=== PATIENT | male | born 1980 | race American Indian/Alaskan Native ===

== ENCOUNTER 2022-01-17 17:26 | Outpatient (REF) | payer MEDICAID, SELFPAY | END 2022-01-17 17:27 | disposition home or self-care (01) | LOC: LAB 17:26 | PROVIDERS: PCP Family Medicine; Visit Provider Orthopaedic Surgery | DX: Z01.818 Encounter for other preprocedural examination (principal) | CPT/HCPCS: 36415; 86850; 86900; 86901 ==

== ENCOUNTER 2022-01-18 09:00 | Outpatient (CLI) | payer MEDICAID, SELFPAY ==
[2022-01-18 15:04] LABS: SARS PCR* Negative SARS-CoV-2 (Negative)
== END 2022-01-18 09:01 | disposition home or self-care (01) ==
LOC: FBOREF 09:00
PROVIDERS: PCP Family Medicine; Visit Provider Orthopaedic Surgery
DX: Z20.822 Contact with and (suspected) exposure to COVID-19 (principal); Z01.818 Encounter for other preprocedural examination
CPT/HCPCS: 87635

== ENCOUNTER 2022-01-19 07:19 | Day surgery (SDC) | payer MEDICAID, SELFPAY ==
[2022-01-19] VITALS (31 sets, daily range): BP systolic 87–148; BP diastolic 36–108; PULSE 69–134; RESP 13–20; TEMP 35.6–37.2; O2SAT 93–100; BMI 25.4
[2022-01-19] MEDS: OXYCODONE (CR) 10 MG TAB.ER.12H PO (07:54)
[2022-01-19] MEDS: ACETAMINOPHEN 500 MG TABLET 1000 MG PO ×3 (07:54→18:27)
[2022-01-19] MEDS: SODIUM CHLORIDE 0.9 % (FLUSH) 10 ML SYRINGE IVF (08:05)
[2022-01-19] MEDS: LACTATED RINGERS 1000 ML 1,000 ML 100 ML IV ×2 (08:05→09:32)
--- NOTE | 2022-01-19 08:16 | SUR.PREOP ---
TIME?OUT:?0818 PT/RN/MDA?VERIFICATION?OF?SURGICAL?SITE,?PROCEDURE,?AND?CONSENT OBTAINED?PRIOR?TO?INVASIVE?PROCEDURE.
[2022-01-19] MEDS: MIDAZOLAM HCL 1 MG/ML inj IVP ×2 (08:19→08:22)
[2022-01-19] MEDS: fentaNYL 100 MCG/2 ML inj IVP ×2 (08:19→08:22)
--- NOTE | 2022-01-19 08:27 | CRLHL7_ITS ---
For Patients: As a result of the Cures Act, medical imaging exams and procedure reports are released immediately into your electronic medical record. You may view this report before your referring provider. If you have questions, please contact your health care provider. Indication: Hip replacement surgery Technique: AP hip fluoroscopic image. Fluoroscopy time 74.2 seconds. Findings/Impression: Hardware from a right total hip arthroplasty is in satisfactory position. Dictated by Renny Mari MD @ 01/19/2022 11:00:09 AM (Electronically Signed)
--- NOTE | 2022-01-19 08:27 | W.PM.NB ---
Nerve Block Nerve Block Time Seen by Provider: 08:28 Date Seen: 01/19/22 Type of block requested by surgeon for post-operative analgesia: DALJIT/LFCN Side: right Time out performed: Yes Verification of patient name: Yes Verification of date of : Yes Site marking: site marked Name of person performing procedure: Rios Continuous monitoring Was continuous monitoring of O2 sat, B/P, monitoring and evaluation advisor, recorded every 15 minutes?: Yes Procedure Checklist: sterile prep, needles and gloves Ultrasound guided. Images saved: Yes Medications given in 5ml increments after negative aspiration: Ropivicaine %: 0.5 mL: 30 Needle gauge: 20 Decadron (mg): 10 Precedex (mcg): 25 Patient tolerated procedure well: Yes Additional comments: Needle noted below psoas tendon needle noted adjacent to LFCN Block Charges Block Charge (with Pro Fee): Other Periph Nerve Block Use of Ultrasound Machine for Block: Yes- US Guidance/pain block
[2022-01-19] MEDS: CEFAZOLIN 2 GM INJ IVP (09:10)
[2022-01-19] MEDS: TRANEXAMIC ACID 100 MG/ML INJ 1000 MG IV (09:12)
--- NOTE | 2022-01-19 10:43 | CRLHL7_ITS ---
For Patients: As a result of the Cures Act, medical imaging exams and procedure reports are released immediately into your electronic medical record. You may view this report before your referring provider. If you have questions, please contact your health care provider. Indication: post op HORTENCIA Technique: AP hip centered pelvis and lateral view right hip. Findings/Impression: Hardware from a right total hip arthroplasty is in satisfactory position. Bone alignment is normal. No sign of acute fracture. Postop changes are within normal limits. Dictated by Renny Mari MD @ 01/19/2022 12:02:22 PM (Electronically Signed)
--- NOTE | 2022-01-19 10:46 | PM.ORPRC ---
Procedure Note Date of procedure: 01/19/22 Procedure: SURGEON: Mynor Zabala MD STRAIGHTEDGE WORKER: Kathleen Oconnor PA-C, Xenia Medrano PA-C PREOPERATIVE DIAGNOSIS: Right hip osteoarthritis POSTOPERATIVE DIAGNOSIS: Right hip osteoarthritis NAME OF OPERATION: Right total hip arthroplasty IMPLANTS: 1. [employer]andall # 54 sector ingrowth cup 2. 36 x 54 +4 neutral polyethylene 3. Actis # 6 standard collared ingrowth stem 4. 36 + 5 ceramic femoral head ANESTHESIA: General ESTIMATED BLOOD LOSS: 200 cc COMPLICATIONS: None SPECIMENS: None DRAINS: None PREOPERATIVE ANTIBIOTICS: Ancef 1 g INDICATIONS: The patient is a 41-year-old with a longstanding history of severe, unrelenting right hip pain secondary to end-stage right hip osteoarthritis. Despite appropriate nonoperative management, including activity modification, use of an assist device, anti-inflammatories, [id number] pain medication, physical therapy and injections, they continue to have pain and disability. Operative intervention was offered. The risks, benefits and expected outcomes were discussed in detail. These included but were not limited to: Infection, bleeding, injury to blood vessel or nerve, venous thromboembolism. All questions were answered to their satisfaction. Use of an specimen preparation assistant was necessary throughout the case for patient positioning and safety, soft tissue retraction and closure. PROCEDURE: The patient was placed supine on the [place] table. General anesthesia was administered. The specimen preparation assistant made sure the patient was properly positioned. The right hip was prepped and draped in the usual sterile fashion. The image intensifier was brought in for a perfect AP pelvis and a perfect double tear drop AP view of each hip which were used for intraoperative templating with our fluoroscopic guide. An oblique incision was made 3 cm distal and 3 cm lateral to the anterior superior iliac spine. The specimen preparation assistant retracted the soft tissues to protect them. Subcutaneous dissection was taken with electrocautery to the superficial fascia. The fascia was divided in line with the incision. Blunt dissection was carried medially to the tensor fascia sheree and sartorius interval. Deep dissection was carried with electrocautery. The circumflex vessels were cauterized and divided. The capsule was exposed and then divided in a T-fashion, tagged with #1 Ethibond sutures. Retractors were placed in the joint, held by the specimen preparation assistant. The corkscrew was placed in the femoral head. The neck cut was made in the subcapital region. We made a second neck cut more distal. The napkin ring of bone was removed. The femoral head was removed intact. Acetabular retractors were placed, held by the specimen preparation assistant. The labrum was sharply debrided. The capsule was released. The 43 mm reamer was used to the true medial wall. We then enlarged in 2 mm increments using the image intensifier for our reamer placement. We impacted the cup which had excellent purchase. We placed the hole eliminator and the polyethylene. Attention was then turned to the proximal femur. The limb was placed in 140 degrees of external rotation, maximum extension and adduction. A significant amount of time was spent releasing the capsule to allow us to deliver the femur into the wound and complete the femoral side safely. Retractors were held by the specimen preparation assistant throughout the femoral preparation. The preparing box tender and canal finder were used. Broaches were used to a stable size. The calcar reamer was used. Trial components were placed. The hip was reduced and was found to be stable with appropriate soft tissue tension. Length and offset had been nicely restored using the image intensifier and our fluoroscopic guide. Trial components were removed. The stem was impacted. We placed the femoral head. Again, the hip was reduced and was found to be stable with appropriate soft tissue tension. Length and offset had been nicely restored. The specimen preparation assistant did a three minute dilute Betadine solution soak. The specimen preparation assistant irrigated the wound with 3 liters of normal saline via pulse lavage. The specimen preparation assistant repaired the anterior capsule with a #1 Vicryl and our previously placed Ethibond sutures. The specimen preparation assistant closed the fascia over the tensor fascia sheree with a #1 PDO Stratafix, subcutaneous tissues with 2-0 Vicryl, skin with a running 3-0 Stratafix and glue. A dry dressing was applied by the specimen preparation assistant. Sponge and needle counts were correct x 2. The patient tolerated the procedure well; there were no apparent complications. They were awakened and extubated in the operating room, sent to the Post-Anesthesia Care Unit in satisfactory condition. PLAN: 1. The patient will be mobilized with physical therapy, weight-bearing as tolerates 2. Xarelto x 5 days then aspirin x 30 days will be used for DVT prophylaxis 3. The patient will be discharged once medically appropriate
--- NOTE | 2022-01-19 11:29 | W.ANESCHARGE ---
Anesthesia Charges Start Date/Time Anesthesia Start Date: 01/19/22 Anesthesia Start Time: 08:58 Stop Date/Time Anesthesia Stop Date: 01/19/22 Anesthesia Stop Time: 11:24 Summary Emergency: No
--- NOTE | 2022-01-19 11:57 | W.ANESCHARGE ---
Anesthesia Charges Start Date/Time Anesthesia Start Date: 01/19/22 Anesthesia Start Time: 08:58 Stop Date/Time Anesthesia Stop Date: 01/19/22 Anesthesia Stop Time: 11:24 Summary Emergency: No
--- NOTE | 2022-01-19 12:05 | SUR.PHASEI ---
patient met criteria for discharge per anesthesia
[2022-01-19] MEDS: ONDANSETRON 2 MG/ML inj 4 MG IVP (12:34)
[2022-01-19] MEDS: OXYCODONE 5 MG TABLET PO ×4 (12:35→22:05)
[2022-01-19] MEDS: LACTATED RINGERS 1000 ML 1,000 ML 75 ML IV (12:52)
[2022-01-19] MEDS: MORPHINE 2 MG/ML inj IVP (13:27)
--- NOTE | 2022-01-19 14:29 | P.IMCN_ITS ---
Date of Consult Patient: Karime Patient Consult date: 01/19/22 Requesting Physician: Orthopedics Primary Care Provider: Annika Pennington MD Consult Narrative Reason for consult: Medical management of comorbid conditions Narrative: Raffaele Harding is a 41 year old male who presented to the hospital today for an elective R HORTENCIA. There were no operative or anesthetic complications. Comorbidities include schizoaffective disorder, ADHD, antisocial personality disorder, moderate persistent asthma with allergic component, nicotine dependence (1/4-1/2ppd), and history of substance abuse (currently using MJ daily, history of methamphetamine abuse). He also notes that he gets bronchitis 4-6 times/year and wonders if he's able to start a Z-pack today. Patient's PCP is prescribing psych meds at this time; he is working on finding a psychiatrist who is a good fit for him. Patient's preoperative H&P reviewed (PCP is Dr. Annika Pennington at [facility] in [place]) and home medications reviewed. Patient lives independently, not working (SSDI 2/2 psych disease), mother lives locally as well. He plans on SNF placement upon discharge. Review of Systems Status of ROS: Reports: 10 or more systems reviewed and unremarkable except as noted in History and below Narrative: Mild chest congestion as noted above, no dyspnea or chest pain. [facility] Medical History (Updated 01/19/22 @ 15:08 by Laura Edwards MD) ADHD GERD (gastroesophageal reflux disease) History of heroin abuse Moderate persistent allergic asthma Renal vessel(s) injury, unspecified Schizo affective schizophrenia Seizure-like activity Tobacco dependence Surgical History (Updated 01/19/22 @ 13:35 by Kathleen Mitchell PA-C) H/O cervical spine surgery (~2016) History of hip surgery (~2005) S/P T&A (status post tonsillectomy and adenoidectomy) Family History (Updated 01/03/22 @ 14:33 by Libby Rojo RN) Mother Rheumatic fever Asthma Social History Smoking Status: Current every day smoker What tobacco products do you use: cigarettes Years smoked: 30 How often do you have a drink containing alcohol: monthly or less AUDIT-C Alcohol total score: 1 Non-prescribed substance use: marijuana (any form), crack/cocaine and amphetamines/methamphetamines Non-prescribed substance use details: medical marijuana Caffeine: Yes (occ pop; coffee, 1 lge cup/day) Meds Home Medications and Allergies Home Medications Medication Instructions Recorded Confirmed Type topiramate 100 mg capsule 100 mg PO HS 11/16/21 01/19/22 History sprinkle,extended release 24 hr trazodone 100 mg tablet 100 mg PO HS 11/16/21 01/19/22 History albuterol sulfate 90 mcg/actuation 2 puff inhalation QID PRN 01/03/22 01/19/22 History aerosol inhaler (ProAir HFA) quetiapine 100 mg tablet 200 mg PO HS 01/03/22 01/19/22 History Home Medication Comments: Also on daily Zyrtec, Claritin, and Vitamin D. Allergies Allergy/AdvReac Type Severity Reaction Status Date / Time tetracycline Allergy Severe Throat Verified 11/18/21 10:41 closes doxycycline Allergy Intermediate Hives Verified 11/18/21 10:41 hydromorphone Allergy Intermediate Hives Verified 11/18/21 10:41 Exam Narrative: Exam Narrative: GEN: Alert HEENT: Normal external ears, EOMIs bilaterally CV: RRR, No concerning murmurs, rubs, or gallops R: LCTA bilaterally without concerning wheezing, rales, or rhonchi, air movement adequate Ext: wwp, no concerning edema Skin: Scar noted on posterior neck, c/w previous neck surgery. Otherwise, no concerning skin lesions or rashes on exposed skin Neuro: No focal deficits Psych: Patient is alternates between having psychomotor slowing and becoming perseverative. He perseverates both on initiating a Z-Mauricio and going outside to vape marijuana. He is intermittently able to be redirected by mother, who was present throughout our interview Const: Vital Signs, click to edit/add: Vital Signs - 24 hr 01/19/22 08:10 01/19/22 08:18 01/19/22 08:20 Temperature 97.5 F L Pulse Rate 87 93 98 Respiratory Rate 18 16 16 Blood Pressure 111/83 97/73 119/36 L Pulse Oximetry 98 99 99 Oxygen Delivery Me thod Room Air Nasal Cannula Nasal Cannula Oxygen Flow Rate 3 3 01/19/22 08:25 01/19/22 08:30 01/19/22 08:35 Temperature Pulse Rate 98 89 86 Respiratory Rate 16 16 16 Blood Pressure 118/77 113/72 87/53 L Pulse Oximetry 99 93 98 Oxygen Delivery Me thod Nasal Cannula Nasal Cannula Nasal Cannula Oxygen Flow Rate 3 3 3 01/19/22 08:40 01/19/22 08:45 01/19/22 08:50 Temperature Pulse Rate 87 88 85 Respiratory Rate 16 16 16 Blood Pressure 104/70 104/69 104/75 Pulse Oximetry 99 99 99 Oxygen Delivery Me thod Nasal Cannula Nasal Cannula Nasal Cannula Oxygen Flow Rate 3 3 3 01/19/22 11:20 01/19/22 11:25 01/19/22 11:30 Temperature 96.6 F L 96.6 F L 96.6 F L Pulse Rate 70 71 70 Respiratory Rate 15 13 14 Blood Pressure 104/73 97/69 93/65 Pulse Oximetry 99 99 99 Oxygen Delivery Me thod Room Air Room Air Room Air Oxygen Flow Rate 01/19/22 11:35 01/19/22 11:40 01/19/22 11:45 Temperature 96.6 F L 96.6 F L 96.6 F L Pulse Rate 70 69 70 Respiratory Rate 14 14 13 Blood Pressure 93/70 95/68 93/69 Pulse Oximetry 99 99 99 Oxygen Delivery Me thod Room Air Room Air Room Air Oxygen Flow Rate 01/19/22 11:50 Temperature 96.8 F L Pulse Rate 70 Respiratory Rate 13 Blood Pressure 93/69 Pulse Oximetry 99 Oxygen Delivery Me thod Room Air Oxygen Flow Rate Assessment and Plan Assessment and plan (1) Status post right hip replacement: Status: Acute Assessment and Plan: - pain control and prophylaxis per Orthopedic Surgery team (2) Schizo affective schizophrenia: Status: Acute Assessment and Plan: - continue home medications with prn medications given perseveration and risk for escalating behaviors (3) Tobacco dependence: Status: Acute Assessment and Plan: - patient aware of campus's no smoking policy. He is amenable to a trial of nicotine patch. He does have concerns about not being able to go outside and vape marijuana, we discussed hospital policy surrounding this. (4) Moderate persistent allergic asthma: Status: Acute Assessment and Plan: - continue home Zyrtec and p.r.n. albuterol. Discussed rate reassuring vital signs and lung exam, discussed that we will not be initiating a Z-Mauricio today, will follow patient clinically. - Encourage IS thrice daily
--- NOTE | 2022-01-19 14:46 | PC.SOCIAL ---
Met with pt.'s mother. Pt. was sleeping after surgery. She is unable to stay with pt. and she checked pt.'s insurance and said he has a halfway benefit. Pt. and his mother live in [place] so they would like placement in [place], [place], and [place]. coordinator of health services will start to work on discharge planning needs. [place] does not have any openings.
[2022-01-19] MEDS: CEFAZOLIN 1 GM in 0.9 % SODIUM CHLORIDE Mini-bag 100 ML IVPB ×2 (15:37→22:56)
[2022-01-19] MEDS: NICOTINE 14 mg PATCH 1 PATCH TRANSDERMA (15:38)
--- NOTE | 2022-01-19 15:49 | PC.NURSE ---
End of shift report: Patient was a new right total hip arthroplasty from today. Arrived to the unit at 1215 today. Mother, Edith Tierney at bedside ([phone]). Patient thrashing and moving from side to side on arrival to unit. Unable to verbalize needs. Provided comfort measures and reassurement. Patient started to come out of anesthesia after about 1 hour on the floor. Had 10/10 pain. PO tylenol/oxy given to patient and prophylactically gave zofran as well. Patient very upset about where the IV was placed in SDS. 3 attempts for a new IV was completed with success. Patient was happy to have it in a place where he could bend his hand and arm. LR running at 75ml/hr. Patient also perseverating on discharge planning. I have to go to a penitentiary. I have no one to care for me and i can't be by myself. coordinator of health services was contacted and spoke with patients mother and patient about the process. coordinator of health services will continue to follow. MD was notified that patient is very anxious and agitated. MD saw patient and will restart home meds. Patient also stating that he smokes marijuana daily and will continue to do this while he is here. MD notified patient that this is against our policy and we cannot allow this but we would adjust his medications to help him get through this. Patient got up to the chair with PT but was very upset with the PT for getting him up and leaving him in the chair. Explained to the patient that being up in the chair after surgery is good for lungs and recovery. Patients mother concerned about his discharge needs. She is unable to provide 24 hour care for him and requests that patient go to a penitentiary for a week or so. Incision is clean, dry and intact. Lung sounds are clear. Vital signs within normal limits. Demanding food but recommended to take it slow. Patient ordered 2 meals as he was starving. Mother brought him a blizzard as well. CWMS is within normal limits and is able to ambulate with stand by assist. Patient does not have teeth or dentures. Takes pills whol with water.
[2022-01-19] MEDS: QUETIAPINE 100 MG TABLET 200 MG PO (20:01)
[2022-01-19] MEDS: TRAZODONE HCL 50 MG TABLET 100 MG PO (20:02)
[2022-01-19] MEDS: TOPIRAMATE 50 MG TABLET 100 MG PO (20:02)
[2022-01-19] MEDS: SENNOSIDES 1 TAB TABLET 2 TAB PO (20:59)
[2022-01-19] MEDS: LORazepam 0.5 MG TABLET PO (22:05)
--- NOTE | 2022-01-19 22:28 | PC.NURSE ---
End of Shift: Patient cooperative and gets agitated at times. Patient vitally stable, lungs clear, BS WNL, IV intact. Patient 1 assist, walker, gb. Patient at most has rated pain 7/10, oxy 10 mg given x3, 2 mg of ativan given HS. Patient HS meds given early upon patient requested and MD okayed giving 2100 meds early. Patient walked the daily once this shift as he expressed not being able to sit in bed anymore. Patient does not like bed alarm, patient was told he must use call light to get up from bed. Patient has been laying comfortably in bed on his phone. Right hip dressing C/D/I. Active Ice in use.
[2022-01-20] MEDS: OXYCODONE 5 MG TABLET PO ×2 (00:46→09:49)
[2022-01-20 03:00] VITALS: PULSE 112; RESP 16; O2SAT 95
--- NOTE | 2022-01-20 06:28 | PC.NURSE ---
Shift note: RN unable to assess the surgical wound, pt does not allow. He is afebrile, pain assessed and was treated per eMAR, and pt was able to rest for the night. supervisor metal placing visited with pt a couple times explaining hospital rules/policies for smoking.
--- NOTE | 2022-01-20 07:47 | P.ORPN_ITS ---
Subjective Subjective Time Seen by Provider: 09:30 Date Seen: 01/20/22 Principal diagnosis: Day 1 s/p right HORTENCIA Interval history: At the start of this visit, Leandro was sleeping in bed and I conversed with his mother. During our inital conversation Leandro began shaking, which his mother reports are his night terrors. Shortly following, Leandro awoke and conversed. Overnight, he has been non-compliant with nursing requests. He is upset that is not able to get up and walk around Med/Surg without nursing staff present. He also is requesting to be able to smoke marijuana. We had a discussion regarding hospital policies, but Leandro remains upset. From an Orthopedic standpoint, he is doing quite well. Pain is well managed with current scheduled and PRN oral pain medications and ice. Ranks his pain 6/10. Denies: fever, chills, body aches, chest pain, SOB. Patient has a strong desire to placed in SNF for additional care stating he cannot go home because he does not have anyone to help him. Ortho Exam Narrative Exam Narrative: Incision/Dressing: Dressing appears clean and dry. No drainage present. Mepilex intact. Right hip appears moderately swollen but supple with no obvious erythema, fluctuance or excessive warmth. No ecchymosis or erythematous streaking. Warmth around the wound is appropriate. Ice is being utilized as needed. CMS: Intact distally with 2+ Dorsalis pedis and Posterior Tibial pulses. Decreased sensation over lateral thigh. Calf: Bilateral calves are supple, with no swelling, pain, tenderness, erythema, discoloration or coolness to the touch. Constitutional: Patient is alert and oriented x3. Patient is in no acute distress and converses without labored breathing. Patient is able to make decisions and demonstrates good insight. Patient is pleasant and cooperative. Affect is full range and appropriate for the circumstances. Const Vital Signs, click to edit/add: Vital Signs - 24 hr 01/19/22 08:10 01/19/22 08:18 01/19/22 08:20 Temperature 97.5 F L Pulse Rate 87 93 98 Pulse Rate [Right Pulse Oximeter] Respiratory Rate 18 16 16 Blood Pressure 111/83 97/73 119/36 L Blood Pressure [Left Arm] Pulse Oximetry 98 99 99 Oxygen Delivery Method Room Air Nasal Cannula Nasal Cannula Oxygen Flow Rate 3 3 01/19/22 08:25 01/19/22 08:30 01/19/22 08:35 Temperature Pulse Rate 98 89 86 Pulse Rate [Right Pulse Oximeter] Respiratory Rate 16 16 16 Blood Pressure 118/77 113/72 87/53 L Blood Pressure [Left Arm] Pulse Oximetry 99 93 98 Oxygen Delivery Method Nasal Cannula Nasal Cannula Nasal Cannula Oxygen Flow Rate 3 3 3 01/19/22 08:40 01/19/22 08:45 01/19/22 08:50 Temperature Pulse Rate 87 88 85 Pulse Rate [Right Pulse Oximeter] Respiratory Rate 16 16 16 Blood Pressure 104/70 104/69 104/75 Blood Pressure [Left Arm] Pulse Oximetry 99 99 99 Oxygen Delivery Method Nasal Cannula Nasal Cannula Nasal Cannula Oxygen Flow Rate 3 3 3 01/19/22 11:20 01/19/22 11:25 01/19/22 11:30 Temperature 96.6 F L 96.6 F L 96.6 F L Pulse Rate 70 71 70 Pulse Rate [Right Pulse Oximeter] Respiratory Rate 15 13 14 Blood Pressure 104/73 97/69 93/65 Blood Pressure [Left Arm] Pulse Oximetry 99 99 99 Oxygen Delivery Method Room Air Room Air Room Air Oxygen Flow Rate 01/19/22 11:35 01/19/22 11:40 01/19/22 11:45 Temperature 96.6 F L 96.6 F L 96.6 F L Pulse Rate 70 69 70 Pulse Rate [Right Pulse Oximeter] Respiratory Rate 14 14 13 Blood Pressure 93/70 95/68 93/69 Blood Pressure [Left Arm] Pulse Oximetry 99 99 99 Oxygen Delivery Method Room Air Room Air Room Air Oxygen Flow Rate 01/19/22 11:50 01/19/22 12:15 01/19/22 12:30 Temperature 96.8 F L 96.0 F L 97.0 F L Pulse Rate 70 70 Pulse Rate [Right Pulse Oximeter] 78 Respiratory Rate 13 16 16 Blood Pressure 93/69 Blood Pressure [Left Arm] 141/72 H 144/80 H Pulse Oximetry 99 100 Oxygen Delivery Method Room Air Room Air Room Air Oxygen Flow Rate 01/19/22 13:15 01/19/22 12:45 01/19/22 13:00 Temperature 98.0 F 97.0 F L 97.0 F L Pulse Rate Pulse Rate [Right Pulse Oximeter] 75 73 79 Respiratory Rate 16 16 16 Blood Pressure Blood Pressure [Left Arm] 110/60 104/61 141/86 H Pulse Oximetry 100 99 99 Oxygen Delivery Method Room Air Room Air Room Air Oxygen Flow Rate 01/19/22 13:30 01/19/22 14:00 01/19/22 14:30 Temperature 98.0 F 98.0 F 98.0 F Pulse Rate Pulse Rate [Right Pulse Oximeter] 80 79 78 Respiratory Rate 16 16 16 Blood Pressure Blood Pressure [Left Arm] 109/85 109/85 117/87 Pulse Oximetry 99 99 99 Oxygen Delivery Method Room Air Room Air Room Air Oxygen Flow Rate 01/19/22 15:30 01/19/22 16:30 01/19/22 15:00 Temperature 97.8 F 98.5 F Pulse Rate Pulse Rate [Right Pulse Oximeter] 107 H 127 H 107 H Respiratory Rate 14 14 14 Blood Pressure Blood Pressure [Left Arm] 134/108 H 128/103 H Pulse Oximetry 99 97 Oxygen Delivery Method Room Air Room Air Oxygen Flow Rate 01/19/22 17:39 01/19/22 18:35 01/19/22 19:00 Temperature 98.8 F 98.7 F 98.9 F Pulse Rate Pulse Rate [Right Pulse Oximeter] 128 H 134 H 126 H Respiratory Rate 14 16 16 Blood Pressure Blood Pressure [Left Arm] 137/100 H 148/69 H 113/87 Pulse Oximetry 98 98 96 Oxygen Delivery Method Room Air Room Air Room Air Oxygen Flow Rate 01/19/22 23:00 01/20/22 03:00 Temperature 97.9 F Pulse Rate Pulse Rate [Right Pulse Oximeter] 120 H 112 H Respiratory Rate 20 16 Blood Pressure Blood Pressure [Left Arm] 126/95 H Pulse Oximetry 97 95 Oxygen Delivery Method Room Air Room Air Oxygen Flow Rate Documenting provider has reviewed patient's vital signs: yes Assessment and Plan Assessment and plan (1) Status post right hip replacement: Problem details: Day 1 s/p right HORTENCIA. DOS: 01/19/22. Status: Acute Assessment and Plan: - Complete 23 hour perioperative antibiotics. - PT/OT consults for education and assistance. - Social consult for discharge planning. emergency services professional will determine if Raffaele qualifies for SNF, although unlikely because patient is being non- compliant and difficult with our staff. - Weight bear as tolerated. - DVT prophylaxis includes: Xarelto x 5 days followed by aspirin 81 mg BID x 1 month. Also bilateral knee high Al stockings (x 1 month), frequent ambulation and ankle pumps when sedentary. - Unsure on discharge date at this time. Will evaluate how he progresses throughout today. - Return to clinic in 1 week for a wound check. Mepilex dressing will be removed at this appointment. Remove sooner if dressing becomes saturated. - Return to clinic in [address] Zabala. - Prescribed analgesics as needed. Patient is content with current narcotic medications. Minimize narcotic pain medication use; wean off and discontinue as soon as possible. - Phone Orthopedics with any questions or concerns. (2) Schizo affective schizophrenia: Status: Acute (3) Tobacco dependence: Status: Acute (4) Moderate persistent allergic asthma: Status: Acute
[2022-01-20 09:00] VITALS: PULSE 112; RESP 16
[2022-01-20] MEDS: SENNOSIDES 1 TAB TABLET 2 TAB PO (09:48)
[2022-01-20] MEDS: RIVAROXABAN 10 MG TABLET PO (09:49)
[2022-01-20 10:21] LABS: Basophils Absolute Auto 0.03 K/uL (0.00-0.30); Basophils Percent Auto 0.4 % (0.0-3.0); Eosinophils Percent Auto 1.3 % (0.0-7.0); Hematocrit 37.1 % (37.0-53.0); Hemoglobin* 12.5 gm/dL (13.5-17.5); Immature Granulocytes Abs Auto 0.02 K/uL (0.00-0.30); Lymphocytes Absolute Auto 1.76 K/uL (0.90-2.90); Lymphocytes Percent Auto 22.4 % (20-44); Mean Corpuscular HGB Conc 34 gm/dL (32-36); Mean Corpuscular Hemoglobin 32 pg (26-34); Mean Corpuscular Volume 95 fL (80-100); Monocytes Percent Auto 11.2 % (0.0-11.0); Neutrophils Absolute Auto 5.06 K/uL (1.7-7.0); Neutrophils Percent Auto 64.4 % (42.0-72.0); Platelet Count* 321 K/uL (140-440); RDW Coefficient of Variation % 12.5 % (11.5-15.5); Red Blood Count 3.89 m/uL (4.30-5.90); White Blood Count* 7.85 K/uL (4.50-11.00)
[2022-01-20 10:40] LABS: Slide Review Reflex No
[2022-01-20 11:20] VITALS: BP 93/69; PULSE 70; RESP 16; TEMP 36.6
[2022-01-20 11:56] LABS: Blood Urea Nitrogen* 14 mg/dL (5-24); Est. Creatinine Clearance* 89.97; Estimated Glomerular Filt Rate 96 ml/min; Potassium* 3.4 mmol/L (3.6-5.1); Sodium* 137 mmol/L (135-149)
--- NOTE | 2022-01-23 11:24 | PM.DS1 ---
DS: Providers Provider Time Seen by Provider: 10:00 Date Seen: 01/20/22 Date of admission: 01/19/2022 Primary care physician: Annika Pennington MD Admitting Clinician: Mynor Zabala MD Consults: 01/19/22 12:11 Consult to Occupational Therapy [CONS] Routine Comment: Reason(s) for OT Consult:: ADLs Prior to Discharge Any Restrictions?:: No Restrictions Comment: Consult to Physical Therapy [CONS] Routine Comment: Ambulate in the daily today Reason(s) for PT Consult:: THR TX Protocol POD#0 Any Restrictions?:: No Restrictions Comment: Nursing Activity: See nursing activity order Consult to Physician [CONS] Routine Comment: Consulting Provider: Hospitalists Has provider been notified: No Consult to School Secretary [CONS] Routine Comment: Reason for Consult:: Discharge Planning Needs Consult to School Secretary [CONS] Routine Comment: Reason for Consult:: Possible SNF placement Attending Physician on discharge: Mynor Zabala MD Date of Discharge: 01/20/22 DS: Diagnosis Discharge Diagnosis (1) Right hip pain: Status: Acute (2) Status post right hip replacement: Status: Acute Problem details: Day 1 s/p right HORTENCAI. DOS: 01/19/22. 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 This is undertaken successfully without any obvious apparent complications. Biggest concern had to do with the patient's behaviors. He smokes marijuana daily. He insisted on continue to do so here in the hospital. He smokes tobacco daily. He insisted on doing so here in the hospital. He is pre contemplative regarding smoking cessation. Initially he demanded that he be discharged to a group home setting. His physical limitations were minimum if at all postoperatively and we informed him that he does not meet eligibility criteria for group home placement for rehabilitation purposes at this time. Eventually he a scented to this and was able to engage in physical and occupational therapy and be sent home with a discharge plan as established by Orthopedic surgery. Time spent discussing smoking cessation with patient: 3 to 10 minutes Status at Discharge Cognitive/behavioral status at discharge: It is difficult to reason with him. This is not new. Functional status at discharge: uses cane/walker Overall status at discharge: patient is progressing back to baseline Time Spent with Patient Time attestation: Total time spent providing and/or coordinating discharge services: Time spent: Less than 30 minutes Exam Narrative: Exam Narrative: GEN: Alert HEENT: Normal external ears, EOMIs bilaterally CV: RRR, No concerning murmurs, rubs, or gallops R: LCTA bilaterally without concerning wheezing, rales, or rhonchi, air movement adequate Ext: wwp, no concerning edema Skin: Scar noted on posterior neck, c/w previous neck surgery. Otherwise, no concerning skin lesions or rashes on exposed skin Neuro:? No focal deficits Psych:? Patient is alternates between having psychomotor slowing and becoming perseverative.? He perseverates both on initiating a Z-Mauricio and going outside to vape marijuana.? He is intermittently able to be redirected by mother, who was present throughout our interview Const: Documenting provider has reviewed patient's vital signs: yes Discharge Plan Discharge Disposition: Home, Self-Care Discharging Surgeon: Mynor Zabala Follow-Up Appointment: One week Prescriptions: New acetaminophen 500 mg Tablet 500 - 1,000 mg PO Q6H MDD 4000 mg per day PRNQty: 100 0RF oxycodone 5 mg Tablet 2.5 - 5 mg PO Q4-6H MDD 6 tabs per day PRN (Reason: Pain) Qty: 42 0RF Rx Instructions: Minimize. Discontinue as soon as possible sennosides [Senna Lax] 8.6 mg Tablet 17.2 mg PO BID PRNQty: 100 0RF Rx Instructions: For narcotic related constipation Xarelto 10 mg Tablet 10 mg PO DAILY PRN (Reason: DVT prophylaxis) 4 Days Qty: 4 0RF Rx Instructions: Take this medication daily for 4 days, then aspirin 81 mg twice daily for 30 days. aspirin [Aspirin Childrens] 81 mg tablet,chewable 81 mg PO BID 30 Days Qty: 60 0RF Continued trazodone 100 mg tablet 100 mg PO HS topiramate 100 mg capsule,sprinkle,ER 24hr 100 mg PO HS quetiapine 100 mg tablet 200 mg PO HS albuterol sulfate [ProAir HFA] 90 mcg/actuation HFA aerosol inhaler 2 puff INHALATION QID PRN Label Comments: INHALE 2 PUFFS BY MOUTH FOUR TIMES DAILY NEEDED FOR SHORTNESS OF BREATH Activity Level: Activity as Tolerated, No strenuous activity and Weight Bearing as Tolerated Activity Detail: Keep dressing on for 1 week. Dressing is waterproof. May shower. Surgical glue covers the wound. Attend outpatient physical therapy if scheduled. Ice and elevate operative extremity without restriction. Wear compression stockings for 1 month post surgery. May remove for 1 hour per day. Ambulate every hour throughout the day. If you drive, Do not drive while taking narcotic pain medication. Do not drink alcohol while taking narcotic pain medication. May drive when safe to do so and have full function of the extremities, this may take 6 weeks or more. Notify Orthopedics with any questions or concerns. ([phone]) Discharge Diet: Regular Patient Instructions: Acetaminophen (By mouth), Aspirin (By mouth), Oxycodone, Rapid Release (By mouth), Rivaroxaban (By mouth), Senna (By mouth), Surgical Site Infections (DC), Total Hip Replacement (DC) Additional Instructions: PT/OT - eval for right total hip arthroplasty. Forms: Work/Release Restrictions Follow-up: [facility] [Provider Group] (As previously scheduled) Kathleen Mitchell PA-C [Physician Miller Head Assistant Wet Process] - 01/25/22 3:30 pm Annika Pennington MD [Primary Care Provider] - Discharge Orders: Discharge Order (Routine); Ordered 01/20/22 Ordered By: Alonso Sanchez
== END 2022-01-20 11:45 | disposition home or self-care (01) ==
LOC: OR 07:55 → MEDSURG 07:55
PROVIDERS: PCP Family Medicine; Visit Provider Orthopaedic Surgery
PROC: (CPT 27130; principal; 2022-01-19 08:45)
DX: M16.11 Unilateral primary osteoarthritis, right hip (principal); F25.9 Schizoaffective disorder, unspecified; F17.200 Nicotine dependence, unspecified, uncomplicated; J45.40 Moderate persistent asthma, uncomplicated; F12.90 Cannabis use, unspecified, uncomplicated
CPT/HCPCS: 27130; 01214; 01402; 36415; 64450; 73501; 76000; 76942; 82565; 84132; 84295; 84520; 85025; 97110; 97116; 97161; 97165; 97530; A9270; C1776; J0330; J0690; J1100; J2250; J2270; J2370; J2405; J2704; J2795; J3010; J3475; J3490; J7120; S4990